=== PATIENT | female | born 1960 | race Native Hawaiian/Other Pacific Islander ===

== ENCOUNTER 2016-07-12 21:00 | Emergency (ER) | payer OTHER ==
[~2016-07-12] VITALS: Ht 177.8 cm; Wt 110.2 kg
[~2016-07-12 21:00] MED LIST: CLONIDINE0.1 MG PO; CYCL10TA35 PO; FURO20TA67 PO; HYDR-2748 PO; METOPROLOL25 M1 PO; PAXIL40 MG PO; SIMV20TA2 PO; TRAM50TA PO; ZOLP10TA2 PO
[2016-07-12 22:10] LABS: PLATELET COUNT 359 K/uL (152-353)
[2016-07-12 22:25] LABS: POTASSIUM 3.7 mmol/L (3.6-5.2); SODIUM 139 mmol/L (136-145)
[2016-07-12 23:52] VITALS: BP 144/82; TEMP 98.4
== END 2016-07-12 23:54 | disposition home or self-care (01) ==
LOC: ED 21:00
DX: R51 Headache (principal); R11.2 Nausea with vomiting, unspecified; E86.0 Dehydration; F41.9 Anxiety disorder, unspecified
CPT/HCPCS: 36415; 80053; 83880; 85027; 85379; 96374; 96375; 99284; J1885; J2060; J2405

== ENCOUNTER 2018-08-31 16:08 | Emergency (ER) | payer OTHER ==
[~2018-08-31] VITALS: Ht 177.8 cm; Wt 113.4 kg
[2018-08-31 16:17] VITALS: TEMP 98.4
[2018-08-31] MEDS ORDERED: HYDR-3182 PO (17:11)
[2018-08-31] MEDS ORDERED: ESZOPICLONE3 MG PO (17:12)
[2018-08-31] MEDS ORDERED: LISI10TA11 PO (17:14)
[2018-08-31] MEDS ORDERED: MEDROL DOSEPAK4 MG PO (17:17)
[2018-08-31 17:28] LABS: PLATELET COUNT 296 K/uL (152-353)
[2018-08-31 17:38] LABS: POTASSIUM 4.2 mmol/L (3.6-5.2)
[2018-08-31 18:48] VITALS: BP 118/68
== END 2018-08-31 18:50 | disposition home or self-care (01) ==
LOC: ED 16:08
PROVIDERS: Emergency Medicine
DX: J44.9 Chronic obstructive pulmonary disease, unspecified (principal)
CPT/HCPCS: 36600; 80053; 82805; 85027; 93005; 94664; 96374; 99284; J2930